=== PATIENT | female | born 1960 | race African-American/Black ===

== ENCOUNTER 2024-04-04 04:15 | Observation (INO) | payer BC ==
[2024-04-04] VITALS (15 sets, daily range): BP systolic 99–129; BP diastolic 43–88; PULSE 80–96; TEMP 97.9–100
[~2024-04-04] VITALS: Ht 170.2 cm; Wt 82.3 kg
[2024-04-04] MEDS ORDERED: TOPROL XL 25MG25 MG PO (05:57)
[2024-04-04] MEDS ORDERED: TAPAZOLE5 MG PO (05:58)
[2024-04-04] MEDS ORDERED: HYZAAR 25 MG-101 TAB PO (05:59)
[2024-04-04] MEDS ORDERED: Ondansetron 4 MG/2 ML VIAL IV PRN ×3 (06:30→12:45)
[2024-04-04] MEDS ORDERED: LR 1,000 ML IV SCH (06:30)
[2024-04-04] MEDS ORDERED: HYDROmorphone 0.5 MG/0.5 ML SYRINGE IV PRN ×2 (06:30→12:45)
--- NOTE | 2024-04-04 07:30 | NUR ---
Pt a&ox4. VSS. Pt is NPO at this time. C/o pain 5/10 but refuses any pain interventions at this time. Pt waiting to go for appendectomy. Pt currently in bed resting. Sister at bedside. Pt is up with assist x1 w/ gait belt. LR infusing into peripheral IV in R hand. IV is intact and patent. No c/o pain or burning at IV site. Pt states that she "wants to get this over with as soon as possible". No further needs at this time. Call light within reach.
--- NOTE | 2024-04-04 09:00 | NUR ---
Pt still resting in bed trying to sleep. C/o pain /10 at this time but still doesn't want any pain interventions. Pain is in RLQ of abdomen. Sister at bedside. Call light within reach. No further needs at this time.
--- NOTE | 2024-04-04 10:10 | NUR ---
Dr. Patel went over procedure with pt in room and pt signed consent for surgery. Pt has no further questions. IV fluids paused and IV antibiotic started. Pt changed into gown.
[2024-04-04] MEDS ORDERED: dexAMETHasone 10 MG/ML VIAL ONE (11:12)
[2024-04-04] MEDS ORDERED: Lidocaine PF 2% (20 MG/ML) 5 ML VIAL ONE (11:12)
[2024-04-04] MEDS ORDERED: Ondansetron 4 MG/2 ML VIAL ONE (11:12)
[2024-04-04] MEDS ORDERED: Ketorolac 30 MG/ML VIAL ONE (11:12)
[2024-04-04] MEDS ORDERED: Midazolam 2 MG/2 ML VIAL ONE (11:12)
[2024-04-04] MEDS ORDERED: fentaNYL 50 MCG/ML 2 ML VIAL ONE (11:13)
[2024-04-04] MEDS ORDERED: Succinylcholine PF 200 MG/10 ML SYRINGE IV ONE (11:13)
[2024-04-04] MEDS ORDERED: Rocuronium 50 MG/5 ML Multi-Dose VIAL ONE (11:13)
--- NOTE | 2024-04-04 11:20 | NUR ---
THE NURSES THAT WILL BE WITH THE PT THROUGHOUT SURGERY AND RECOVERY CAME TO GET PT. PT TAKEN DOWN TO SURGERY IN HER BED. NURSES TALKED THROUGH THE NEXT STEPS WITH PT AND HER SISTER. JEWELRY OFF. IV FLUIDS HANGING.
[2024-04-04] MEDS ORDERED: hydrALAZINE 20 MG/ML 1 ML VIAL IV PRN (11:30)
[2024-04-04] MEDS ORDERED: droPERidol 2.5 MG/ML 2 ML VIAL IV PRN (11:30)
[2024-04-04] MEDS ORDERED: HYDROmorphone 1 MG/1 ML SYRINGE [PACU/SDC ONLY] IV PRN (11:30)
[2024-04-04] MEDS ORDERED: fentaNYL 50 MCG/ML 1 ML SYRINGE/VIAL [PACU/SDC ONLY] IV PRN (11:30)
[2024-04-04] MEDS ORDERED: Meperidine 50 MG/ML 1 ML VIAL IV PRN (11:30)
--- NOTE | 2024-04-04 11:56 | NUR ---
Data: Spiritual care visit offered during [employer] Field Technician rounds. Patient requested [employer] Field Technician return in the afternoon.
[2024-04-04] MEDS ORDERED: metroNIDAZOLE 100 ML IV ONE (12:04)
[2024-04-04] MEDS ORDERED: HYDROCHLOROTHIAZIDE 12.5 MG PO SCH (12:38)
[2024-04-04] MEDS ORDERED: LOSARTAN 100 MG PO SCH (12:38)
[2024-04-04] MEDS ORDERED: oxyCODONE 5 MG TAB PO PRN (12:45)
[2024-04-04] MEDS ORDERED: Naloxone 0.4 MG/ML VIAL IV PRN (12:45)
[2024-04-04] MEDS ORDERED: Acetaminophen 500 MG TAB PO SCH (13:35)
--- NOTE | 2024-04-04 13:45 | NUR ---
PT BROUGHT UP FROM PACU BY BED. PACU NURSE HELPED GET PT SITUATED IN ROOM. VSS. POST OP VITALS STARTED. PT HAS IV FLUIDS RUNNING THROUGH IV IN R HAND. PT HAS 3 INCISIONS WITH BANDAIDS COVERING THEM. PT REPORTS THAT SHE HAS NO PAIN AT THIS TIME AND "FEELS GREAT". PT HAS BEEN TOLERATING LIQUIDS GREAT AND HAS BEEN ADVANCED TO A GENERAL DIET. LUNCH ORDERED FOR PT. FAMILY AT BEDSIDE.
--- NOTE | 2024-04-04 15:29 | NUR ---
Data: Follow-up visit. Patient was at surgery. Patient's sister and friend waiting in room. Assessment: None at this time. Sister and Friend stated they had no spiritual needs. Plan of Care: Leather Etcher prayed for the surgery of the Patient to go well. Both thanked Leather Etcher for the prayer. Chaplains will remain available as needed/requested while Patient is admitted to this hospital.
--- NOTE | 2024-04-04 18:00 | NUR ---
Pt has been sleeping all afternoon. Easily arousable by name. Post op vitals complete. No c/o pain at this time. On 1L of O2 via NC. Using IS properly. Planning to order food from elsewhere. Wasn't interested in ordering here. Pt has no further needs at this time. Call light and personal belongings within reach. Pt instructed to use call light for any needs.
--- NOTE | 2024-04-04 20:05 | NUR ---
Patient talking with her daughter over the phone, assessed at this time, see shift assessment, denies pain or discomfort, denies nausea or vomiting, IV infusing well on right hand, on oxygen via nasal cannula at 2LPM, encouraged the use of IS and explained the importance of it, denies any other needs or concerns, will continue to monitor.
--- NOTE | 2024-04-04 22:44 | NUR ---
Pateint INT'd at this time, tolerating fluids, oxygen at 1LPM.
[2024-04-05] VITALS (11 sets, daily range): BP systolic 91–136; BP diastolic 58–80; PULSE 71–92; TEMP 97.3–98.6
[2024-04-05 06:29] LABS: BASO % 0.2 % (0.0-2.0); EOS % 0.1 % (0.0-4.0); GRAN # 12.5 K/mm3 (1.4-6.5); HEMOGLOBIN 11.6 g/dl (12.5-16.0); LYMPH # 1.6 K/mm3 (1.2-3.4); LYMPH % 10.4 % (20.0-51.0); MEAN CELL VOLUME 85 fl (80.0-100.0); MEAN CORPUSCULAR HEMOGLOBIN 28 pg (27-31); MEAN CORPUSCULAR HGB CONC 33 g/dl (33.0-37.0); MEAN PLATELET VOLUME 10.4 fl (7.4-10.4); MONO # 1.2 K/mm3 (0.1-0.6); MONO % 7.7 % (1.7-9.3); PLATELET COUNT 182 K/mm3 (130-400); RED BLOOD COUNT 4.14 M/mm3 (4.10-5.30); REDCELL DISTRIBUTION WIDTH-CV 13.4 % (11.5-14.5)
[2024-04-05 06:43] LABS: HEMATOCRIT 35.2 % (37.0-47.0)
[2024-04-05 06:53] LABS: ALBUMIN 3.2 g/dL (3.4-4.8); BILIRUBIN,TOTAL 0.9 mg/dL (0.2-1.2); CREATININE, serum 0.9 mg/dL (0.57-1.11); POTASSIUM 3.5 mEq/L (3.5-4.5); TOTAL PROTEIN 6.5 g/dl (6.2-8.1)
--- NOTE | 2024-04-05 07:00 | NUR ---
Bedside report received. Pt currently asleep. Call light within reach.
[2024-04-05] MEDS ORDERED: methIMAzole 2.5 MG TAB PO SCH (09:00)
--- NOTE | 2024-04-05 09:00 | NUR ---
Pt a&ox4. VSS. No c/o pain at this time. Pt is in good spirits and expresses that she is ready to go home today. Pt is independent in room. Shift assessment complete and medications administered. IV in R wrist is INT and flushes well. No further needs at this time. Call light and personal belongings within reach.
--- NOTE | 2024-04-05 10:30 | NUR ---
Went into room and pt was crying. Asked what was wrong and pt expressed that she really wanted to go home today and did not want to stay another night. Sat and talked with pt and her mood seems a little better now.
--- NOTE | 2024-04-05 11:38 | NUR ---
Claims Technician met with patient at bedside to discuss discharge planning. Patient states that she lives in [place] independently. Her sister Maritza is her primary contact (p# [phone]). Patient reports that her primary care physician is Dr. Quintana, and that her pharmacy of choice is the [email or web address]. Patient reports that she is independent in her ADLs, uses no DMEs, and has no need for assistance with transportation or with affording or accessing prescription medications. 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 Patient denies any additional concerns at this time. Plan: D/C home
--- NOTE | 2024-04-05 17:48 | NUR ---
Pt got a shower this afternoon as well as new linens. Pt states that she felt much better after that. Pt has had visitors all afternoon. Currently sitting up in recliner with family in room. No c/o pain throughout the shift. No further needs at this time. Call light within reach.
--- NOTE | 2024-04-05 20:00 | NUR ---
PATIENT IS A&O. VSS. NO COMPLAINTS. ABD LAP SITES X3 ARE CD&I WITH BANDAIDS. ABD IS ROUND, SOFT AND NOTED POSITIVE BOWL SOUNDS. PATIENT ALSO REPORTS HAVING A MEDIUM BM TONIGHT. TOLERATING GENERAL DIET. RIGHT WRIST IV TO INT. HS MEDS GIVEN. HEAD TO TOE ASSESSMENT WNL. PATIENT HOPES TO DISCHARGE HOME TOMORROW. NO OTHER NEEDS AT THIS TIME. INDEPENDENT IN ROOM. CALL LIGHT IN REACH.
[2024-04-06] VITALS: BP 124/68; PULSE 82; TEMP 98.7
[2024-04-06 01:00] VITALS: BP_SYST 124
[2024-04-06 03:34] VITALS: BP 124/82; PULSE 91; TEMP 98.4
[2024-04-06 04:38] VITALS: BP_SYST 124
[2024-04-06 06:12] LABS: BASO % 0.2 % (0.0-2.0); EOS # 0.1 K/mm3 (0.0-0.7); EOS % 0.6 % (0.0-4.0); GRAN # 10.5 K/mm3 (1.4-6.5); GRAN % 75.2 % (42.2-75.2); LYMPH # 2.5 K/mm3 (1.2-3.4); LYMPH % 17.6 % (20.0-51.0); MEAN CELL VOLUME 86 fl (80.0-100.0); MEAN CORPUSCULAR HEMOGLOBIN 28 pg (27-31); MEAN CORPUSCULAR HGB CONC 33 g/dl (33.0-37.0); MEAN PLATELET VOLUME 10.4 fl (7.4-10.4); MONO # 0.8 K/mm3 (0.1-0.6); MONO % 5.8 % (1.7-9.3); PLATELET COUNT 189 K/mm3 (130-400); RED BLOOD COUNT 3.92 M/mm3 (4.10-5.30); REDCELL DISTRIBUTION WIDTH-CV 13.6 % (11.5-14.5)
[2024-04-06 06:19] LABS: HEMATOCRIT 33.8 % (37.0-47.0)
[2024-04-06 07:01] VITALS: BP 133/72; PULSE 109; TEMP 99.9
[2024-04-06] MEDS ORDERED: AMOXICILLIN 8751 TAB PO (08:38)
[2024-04-06] MEDS ORDERED: ROXICODONE 55 MG/TAB PO (08:38)
[2024-04-06 08:48] VITALS: BP_SYST 133
--- NOTE | 2024-04-06 09:34 | NUR ---
PT ATE ALL OF [employer]FA[employer], HAS BELONGINGS PACKED. NURSE REVIEWED DISCHARGE INSTRUCTIONS WITH PT, ANSWERED QUESTIONS. PT DENIES FURTHER QUESTIONS OR NEEDS. PT RESTING IN BED, AGREEABLE WITH PLAN OF CARE, WAITING FOR RIDE HOME, CALL LT IN REACH.
--- NOTE | 2024-04-06 09:49 | NUR ---
PT TO POV VIA W/C WITH BELONGINGS. PT DENIES ANY FURTHER NEEDS OR QUESTIONS. PT WITH LARGE ENGINE ASSEMBLER/FAMILY.
--- NOTE | 2024-04-06 10:10 | NUR ---
Initial visit; Patient preparing to be discharged and apologized . Community Health Worker said she was just blessed to meet her and wished her well.
== END 2024-04-06 09:45 | disposition home or self-care (01) ==
LOC: SURG 04:15
PROVIDERS: ADMIT Surgery
DX: K35.80 Unspecified acute appendicitis (principal)
CPT/HCPCS: A9284; G0378; G0379; J0690; J1100; J1650; J1836; J1885; J2250; J2310; J2405; J2543; J2704; J3010; J7120